=== PATIENT | male | born 1970 | race Hispanic/Latino ===

== ENCOUNTER 2017-02-07 06:43 | Emergency (ER) | payer SELFPAY ==
[2017-02-07] MEDS ORDERED: Ondansetron HCl/PF 4 MG/2 ML Vial ONE (06:55)
[2017-02-07] MEDS ORDERED: Adacel (T-DAP) 0.5 ML VIAL ONE (07:02)
[2017-02-07] MEDS ORDERED: Bupivacaine 0.5% 10 ML VIAL ONE ×2 (07:08→07:18)
[2017-02-07] MEDS ORDERED: ceFAZolin Sodium 1 GM VIAL ONE (07:09)
[2017-02-07] MEDS ORDERED: Sodium Chloride 0.9% 100 ML ONE (07:10)
[2017-02-07] MEDS ORDERED: Sodium Chloride 0.9% 500 ML ONE (07:30)
[2017-02-07] MEDS ORDERED: Bacitracin Zinc 1 Packet ONE (08:06)
--- NOTE | 2017-02-07 08:17 | RAD ---
RIGHT TIBIA AND FIBULA TWO VIEWS: History: Dropped sheet metal on leg. FINDINGS: There is a soft tissue laceration and air within the soft tissues in the lower leg region. I do not see any associated fracture. IMPRESSION: Soft tissue injury without underlying fracture. POS: [facility]
== END 2017-02-07 09:30 | disposition home or self-care (01) ==
LOC: NAV ERS 06:43
DX: S81.811A Laceration without foreign body, right lower leg, initial encounter (principal); F17.210 Nicotine dependence, cigarettes, uncomplicated; W20.8XXA Other cause of strike by thrown, projected or falling object, initial encounter
CPT/HCPCS: 12035; 90471; 90715; 96365; 96375; 96376; J0690; J2270; J2405; J3490; J7050

== ENCOUNTER 2017-02-11 20:20 | Emergency (ER) | payer SELFPAY ==
[2017-02-11] MEDS ORDERED: Sodium Chloride 0.9% 1,000 ML ONE (21:34)
[2017-02-11] MEDS ORDERED: Clindamycin 300 MG/2 ML VIAL ONE (21:34)
[2017-02-11] MEDS ORDERED: Sodium Chloride 0.9% 100 ML ONE (21:38)
[2017-02-11] MEDS ORDERED: Sodium Chloride 0.9% 0 ML ONE (21:38)
[2017-02-11 21:46] LABS: #Basophils 0.1 thou/uL (0.0-0.2); #Eosinphils 0.2 thou/uL (0.0-0.7); #Lymphocytes 2.3 thou/uL (1.20-3.40); #Monocytes 0.8 thou/uL (0.11-0.59); %Basophils 0.8 % (0.0-1.0); %Eosinophils 2.5 % (0.0-10.0); %Lymphocytes 27.6 % (21.0-51.0); %Neutrophils 60.1 % (42.0-75.0); Mean Corpuscular HGB CONC 32.2 g/dL (32.0-36.0); Mean Corpuscular Hemoglobin 29.4 pg (27.0-31.0); Mean Corpuscular Volume 91.3 fl (80.0-94.0); Mean Platelet Volume 8.2 fL (7.4-10.4); Platelet Count 307 thou/uL (130-400); RBC Distribution Width 11.9 % (11.5-14.5); Red Blood Cell (RBC) Count 5.45 mill/uL (4.70-6.10); White Blood Cell (WBC) Count 8.3 thou/uL (4.8-10.8)
[2017-02-11 21:54] LABS: ALT (SGPT) 53 U/L (8-55); AST (SGOT) 47 U/L (5-34); Albumin 4.2 g/dL (3.5-5.0); Alkaline Phosphatase 114 U/L (40-150); Anion Gap 15 mmol/L (10-20); BUN (Urea Nitrogen) 9 mg/dL (8.9-20.6); Bilirubin, Total 0.4 mg/dL (0.2-1.2); Calc. Creatinine Clearance 0 mL/min (70-130); Calcium 9.2 mg/dL (7.8-10.44); Carbon Dioxide 26 mmol/L (22-29); Chloride 103 mmol/L (98-107); Estimated GFR-MDRD Greater than 90; Globulin 3.4 g/dL (2.4-3.5); Glucose 96 mg/dL (70-105); Potassium 3.8 mmol/L (3.5-5.1); Protein, Total 7.6 g/dL (6.0-8.3); Sodium 140 mmol/L (136-145)
== END 2017-02-11 22:57 | disposition home or self-care (01) ==
LOC: NAV ERS 20:20
DX: L03.115 Cellulitis of right lower limb (principal); F17.210 Nicotine dependence, cigarettes, uncomplicated; Z79.899 Other long term (current) drug therapy
CPT/HCPCS: 80053; 85025; 87040; 96365; J3490; J7050

== ENCOUNTER 2017-11-07 17:32 | Emergency (ER) | payer SELFPAY ==
[2017-11-07] MEDS ORDERED: Lidocaine 1% 20 ML MDV ONE (18:31)
[2017-11-07] MEDS ORDERED: Acetaminophen 500 MG TAB ONE (18:34)
[2017-11-07] MEDS ORDERED: Cephalexin 250 MG CAP ONE (18:57)
== END 2017-11-07 19:05 | disposition home or self-care (01) ==
LOC: NAV ERS 17:32
DX: S60.852A Superficial foreign body of left wrist, initial encounter (principal); F17.210 Nicotine dependence, cigarettes, uncomplicated; W45.8XXA Other foreign body or object entering through skin, initial encounter; W25.XXXA Contact with sharp glass, initial encounter
CPT/HCPCS: 10120; J2001